=== PATIENT | female | born 1970 | race Caucasian/White ===

== ENCOUNTER 2016-06-18 11:10 | Emergency (ER) | payer MEDICAID ==
[~2016-06-18] VITALS: Ht 162.6 cm; Wt 88.9 kg
[~2016-06-18 11:10] MED LIST: ALBUTEROL SULF8.5 GM INH; AMOXICILLIN500 MG ORAL; AZITHROMYCIN250 MG ORAL; BACTRIM DS TAB1 EAC1 ORAL; CIPRO HC OTIC S10 M1 OT; IBUPROFEN600 MG ORAL; KEFLEX500 MG ORAL; NKM; NORCO 5-325 TA1 EACH ORAL; NORCO1 EA ORAL
[2016-06-18 11:17] VITALS: BP 133/83
[2016-06-18] MEDS ORDERED: ZITHROMAX250 MG ORAL (11:35)
[2016-06-18] MEDS ORDERED: ACETAMINOPHEN-1 EAC1 ORAL (11:35)
[2016-06-18] MEDS ORDERED: VENTOLIN HFA18 GM INH (11:35)
[2016-06-18] MEDS ORDERED: FLONASE ALLERG9.9 ML NS (11:35)
[2016-06-18 11:41] VITALS: BP 133/83
--- NOTE | 2016-06-18 11:41 | Emergency Room Report ---
History of Present Illness General Chief Complaint: Upper Respiratory Illness Source: Patient, Medical Record Present Illness HPI 45YOF presents with 5 days of dry cough, nasal congestion, sore throat, and bilateral ear pain (only at night). + smoker. + asthma. Doesnt have inhaler/ albuterol. Denies chest pain, SOB, abd pain, headache, myalgias. +sick son at home. Allergies: Coded Allergies: PROCHLORPERAZINE EDISYLATE (Verified Allergy, Mild, Hives, 08/20/12) PROCHLORPERAZINE MALEATE (Verified Allergy, Mild, Hives, 08/20/12) SULFADIAZINE (Verified Adverse Reaction, Intermediate, 10/13/13) Patient History Past Medical History: asthma Past Surgical History: none Pertinent Family History: none Social History: Reports: smoking Last Menstrual Period: 03/04/16 Now: No Immunizations: UTD Reviewed Nursing Documentation: PMH: Agreed, PSxH: Agreed Nursing Documentation-PMH Past Medical History: No History, Except For Hx Asthma: Yes Review of Systems All Other Systems: negative except mentioned in HPI Physical Exam Vital Signs Date Time Temp Pulse Resp B/P Pulse Ox O2 Delivery O2 Flow Rate FiO2 06/18/16 11:13 98.4 103 16 133/83 98 Room Air Sp02 EP Interpretation: reviewed, abnormal General Appearance: normal inspection, well appearing, no apparent distress, alert, GCS 15, non-toxic Head: normocephalic, atraumatic Eyes: bilateral eye EOMI, bilateral eye PERRL ENT: normal ENT inspection, hearing grossly normal, normal pharynx, no angioedema, normal voice, TMs + canals normal, uvula midline Neck: normal inspection, full range of motion, supple, no bony tend Respiratory: normal inspection, lungs clear, normal breath sounds, no rhonchi, no respiratory distress, no retraction, no accessory muscle use, no wheezing Cardiovascular #1: regular rate, rhythm, no edema Gastrointestinal: normal inspection, normal bowel sounds, non tender, soft, no guarding, no hernia Genitourinary: no CVA tenderness Musculoskeletal: normal inspection, back normal, normal range of motion, Yunier' s Sign negative Neurologic: normal inspection, alert, oriented x3, responsive, 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 VSS. Afebrile No obvious source of bacterial infection in oropharynx, ears, lungs, skin, abdomen on exam Well appearing Low suspicion for PNA, other acute bacterial process requiring additional evaluation, admissionAdvised supportive treatment PMD followup DC home Understands to return for worsening symptoms - Use albuterol and T#3 as needed for cough - Follow up with your primary care doctor in 2-3 days Last Vital Signs Date Time Temp Pulse Resp B/P Pulse Ox O2 Delivery O2 Flow Rate FiO2 06/18/16 11:17 98.4 16 133/83 98 Room Air 06/18/16 11:17 103 Status: improved Disposition: HOME, SELF-CARE Condition: Improved Scripts Albuterol Sulfate (VENTOLIN HFA) 18 Gm Hfa.aer.ad 2 PUFFS INH EVERY 6 HOURS for For Cough, #18 GM 0 Refills Prov: HUMAIRA HANSON M.D. 06/18/16 Fluticasone Propionate (Flonase Allergy Relief) 9.9 Ml [place].susp 9.9 ML NS BID for 7 Days, #1 UNIT Prov: HUMAIRA HANSON M.D. 06/18/16 Acetaminophen With Codeine (T#3) (TYLENOL #3 TAB*) Y Tab 1 TAB ORAL QHS Y for For Cough for 7 Days, #20 TAB Prov: HUMAIRA HANSON M.D. 06/18/16 Azithromycin* (ZITHROMAX*) 250 Mg Tablet 250 MG ORAL DAILY, #6 TAB 0 Refills Take two tables once daily for 1 day, then one tablet once daily for 4 days. Prov: HUMAIRA HANSON M.D. 06/18/16 Referrals: [facility]/,REFERRING (PCP) Patient Instructions: Upper Respiratory Infection, Adult Additional Instructions: - Cough: During the day use ventolin/albuterol as needed; at night take Tylenol with codeine for cough - Use flonase nasal spray as prescribed along with your sudafed for sinus congestion - Take ALL of the azithromycin antibiotic Z-pack medications - Follow up with your doctor in 2-3 days HUMAIRA HANSON M.D. June 18, 2016 11:41
== END 2016-06-18 11:41 | disposition home or self-care (01) ==
LOC: EMR 11:29
DX: J06.9 Acute upper respiratory infection, unspecified (principal); J45.909 Unspecified asthma, uncomplicated; F17.200 Nicotine dependence, unspecified, uncomplicated; Z88.2 Allergy status to sulfonamides; Z88.8 Allergy status to other drugs, medicaments and biological substances
CPT/HCPCS: 99284

== ENCOUNTER 2016-10-07 14:31 | Emergency (ER) | payer MEDICAID ==
[~2016-10-07] VITALS: Ht 162.6 cm; Wt 81.6 kg
[~2016-10-07 14:31] MED LIST changes: +ACETAMINOPHEN-1 EAC1 ORAL; +FLONASE ALLERG9.9 ML NS; +VENTOLIN HFA18 GM INH; +ZITHROMAX250 MG ORAL
--- NOTE | 2016-10-07 15:45 | Emergency Room Report ---
History of Present Illness General Chief Complaint: Upper Respiratory Illness Source: Patient Present Illness HPI 45 YO Female Presents to the ED c/O cough, nasal congestion, rhinorrhea and exacerbation of her inhaler use x 2 days. Pt. also reports bilateral ear discomfort described as pressure, and frontal sinus pressure. denies d/c or changes to hearing. Pt has hx of asthma, denies fevers/chills. Onset was the day after her son started high school and had same symptoms. Pt. reports intermittent clear mucus production. denies neck pain or stiffness. denies abdominal pain or rashes. Pt is UTD with vaccinations. Denies CP, Palpitations, LOC, AMS, dizziness, Changes in Vision, Sensation, paresthesias, or a sudden severe headache. Allergies: Coded Allergies: PROCHLORPERAZINE EDISYLATE (Verified Allergy, Mild, Hives, 08/20/12) PROCHLORPERAZINE MALEATE (Verified Allergy, Mild, Hives, 08/20/12) SULFADIAZINE (Verified Adverse Reaction, Intermediate, 10/13/13) Patient History Past Medical History: see triage record Past Surgical History: none Pertinent Family History: none Last Menstrual Period: unknown Now: No Immunizations: UTD Reviewed Nursing Documentation: PMH: Agreed, PSxH: Agreed Nursing Documentation-PMH Hx Asthma: Yes Review of Systems All Other Systems: negative except mentioned in HPI Physical Exam Vital Signs Date Time Temp Pulse Resp B/P Pulse Ox O2 Delivery O2 Flow Rate FiO2 10/07/16 14:48 98.4 89 19 111/75 97 Room Air Sp02 EP Interpretation: reviewed, normal General Appearance: no apparent distress, alert, GCS 15, non-toxic Head: normocephalic, atraumatic Eyes: bilateral eye PERRL, bilateral eye normal inspection ENT: hearing grossly normal, normal pharynx, no angioedema, normal voice, TMs + canals normal, uvula midline, nasal congestion, other - frontal and maxillary sinus ttp, no purulent d/c noted from nares. Neck: full range of motion, no meningismus, no bony tend, supple/symm/no masses Respiratory: chest non-tender, lungs clear, no rhonchi, speaking full sentences , wheezing - scant wheezes bilaterally Cardiovascular #1: regular rate, rhythm Musculoskeletal: back normal, gait/station normal, normal range of motion Neurologic: alert, oriented x3, responsive, motor strength/tone normal, sensory intact, speech normal Psychiatric: judgement/insight normal, memory normal, mood/affect normal Skin: normal color, no rash, warm/dry, well hydrated Lymphatic: no adenopathy Medical Decision Making PA Attestation Dr. De Jesus is my supervising Physician whom patient management has been discussed with. Diagnostic Impression: Primary Impression: Upper respiratory infection Qualified Codes: J06.9 - Acute upper respiratory infection, unspecified; B97.89 - Other viral agents as the cause of diseases classified elsewhere Additional Impression: Bronchitis ER Course 45 YO Female Presents to the ED c/O cough, nasal congestion, rhinorrhea and exacerbation of her inhaler use x 2 days. Pt. also reports bilateral ear discomfort described as pressure, and frontal sinus pressure. denies d/c or changes to hearing. Pt has hx of asthma, denies fevers/chills. Onset was the day after her son started high school and had same symptoms. Pt. reports intermittent clear mucus production. denies neck pain or stiffness. denies abdominal pain or rashes. Pt is UTD with vaccinations. Denies CP, Palpitations, LOC, AMS, dizziness, Changes in Vision, Sensation, paresthesias, or a sudden severe headache. Ddx considered but are not limited to URI, pneumonia, PE, strep pharyngitis, meningitis. Vital signs: Pt. is afebrile, the remaining VS are WNL H&PE are most consistent with URI- no meningeal signs, oropharynx is not involved, no evidence of bacterial infection at this time. I do not suspect pneumonia at this time. ORDERS: none required at this time, the diagnosis is clinical ED INTERVENTIONS: None required at this time. --PT. EDUCATION: Discussed antibiotic resistance with inappropriate prescribing of antibiotics for viral illnesses. Discussed signs and symptoms to indicate viral illness versus bacterial illness. DISCHARGE: At this time pt. is stable for d/c to home. Will provide printed patient care instructions, and any necessary prescriptions. Care plan and follow up instructions have been discussed with the patient prior to discharge. Last Vital Signs Date Time Temp Pulse Resp B/P Pulse Ox O2 Delivery O2 Flow Rate FiO2 10/07/16 14:48 98.4 89 19 111/75 97 Room Air Disposition: HOME, SELF-CARE Condition: Stable Scripts Cetirizine Hcl/Pseudoephedrine (ZYRTEC-D TABLET) 1 Each Tab.er.12h 1 EACH ORAL Q12HR for 7 Days, #14 TAB Prov: Arianna Modi 10/07/16 Albuterol Sulfate* (ALBUTEROL SULFATE MDI*) 8.5 Gm Hfa.aer.ad 2 PUFF INH Q4H, #1 INH 0 Refills Prov: Arianna Modi 10/07/16 Codeine Phosphate/Guaifenesin (GUAIFEN-CODEINE 200-20 MG/10ML) 10 Ml Liquid 10 ML PO Q6HR, #118 ML Prov: Arianna Modi 10/07/16 Referrals: [facility],REFERR[facility] (PCP) Patient Instructions: Upper Respiratory Infection, Adult Additional Instructions: Take medications as directed. Follow up with a Primary Care Provider in 3-5 days, even if your symptoms have resolved. --Please review list of primary care clinics, if you do not already have a primary care provider Return sooner to ED if new symptoms occur, or current symptoms become worse. Do not drink alcohol, drive, or operate heavy machinery while taking Cough Syrup as this may cause drowsiness. - Please note that this Emergency Department Report was dictated using [employer] specialist technology software, occasionally this can lead to erroneous entry secondary to interpretation by the dictation equipment. Arianna Modi Oct 07, 2016 15:45
[2016-10-07] MEDS ORDERED: GUAIFEN-CODEINE10 ML PO (15:48)
[2016-10-07] MEDS ORDERED: ZYRTEC-D TABLE1 EACH ORAL (15:48)
[2016-10-07] MEDS ORDERED: ALBUTEROL SULF8.5 GM INH (15:48)
[2016-10-07 16:23] VITALS: BP 111/75
[2016-10-07 16:24] VITALS: BP 111/75
== END 2016-10-07 16:25 | disposition home or self-care (01) ==
LOC: EMR 15:15
DX: J06.9 Acute upper respiratory infection, unspecified (principal); J20.9 Acute bronchitis, unspecified; B97.89 Other viral agents as the cause of diseases classified elsewhere; Z88.2 Allergy status to sulfonamides; Z88.8 Allergy status to other drugs, medicaments and biological substances
CPT/HCPCS: 99284

== ENCOUNTER 2016-11-01 15:46 | Emergency (ER) | payer MEDICAID ==
[~2016-11-01] VITALS: Ht 162.6 cm; Wt 88.5 kg
[~2016-11-01 15:46] MED LIST changes: +GUAIFEN-CODEINE10 ML PO; +ZYRTEC-D TABLE1 EACH ORAL
[2016-11-01 16:05] VITALS: BP 129/83
[2016-11-01] MEDS ORDERED: ROBAXIN-750750 MG PO (16:09)
[2016-11-01] MEDS ORDERED: NAPROSYN500 M1 ORAL (16:09)
--- NOTE | 2016-11-01 16:55 | Emergency Room Report ---
History of Present Illness General Chief Complaint: Neck Pain Source: Patient Present Illness HPI The patient is a 45-year-old female presenting with left neck pain for one week. She denies any known injury but states she may be sleeping incorrectly. There is a 7/10 dull ache to the L neck and L shoulder. Worse with arm movement. She has been using Motrin at home which has been helping. She denies any previous injury to these areas. She denies any other symptoms including F, numbness, IRVIN, dizziness, neck stiffness, rash, CP, SOB Allergies: Coded Allergies: PROCHLORPERAZINE EDISYLATE (Verified Allergy, Mild, Hives, 08/20/12) PROCHLORPERAZINE MALEATE (Verified Allergy, Mild, Hives, 08/20/12) SULFADIAZINE (Verified Adverse Reaction, Intermediate, 10/13/13) Patient History Past Medical History: see triage record Pertinent Family History: none Last Menstrual Period: feb Now: No Reviewed Nursing Documentation: PMH: Agreed, PSxH: Agreed Nursing Documentation-PMH Past Medical History: No History, Except For Hx Asthma: Yes Review of Systems All Other Systems: negative except mentioned in HPI Physical Exam Vital Signs Date Time Temp Pulse Resp B/P (MAP) Pulse Ox O2 Delivery O2 Flow Rate FiO2 11/01/16 15:49 98.8 88 18 129/83 98 Room Air Sp02 EP Interpretation: reviewed, normal General Appearance: no apparent distress, alert, GCS 15, non-toxic Head: normocephalic, atraumatic Eyes: bilateral eye normal inspection, bilateral eye PERRL ENT: hearing grossly normal, normal pharynx, no angioedema, normal voice Neck: full range of motion, supple/symm/no masses, tender lateral - L Respiratory: chest non-tender, lungs clear, normal breath sounds, speaking full sentences Cardiovascular #1: regular rate, rhythm, no edema Musculoskeletal: back normal, gait/station normal, normal range of motion, tender - TTP over the L trapezius Neurologic: alert, oriented x3, responsive, motor strength/tone normal, sensory intact, speech normal Psychiatric: judgement/insight normal, memory normal, mood/affect normal, no suicidal/homicidal ideation Skin: normal color, no rash, warm/dry, well hydrated Procedures Splinting Splinting : Consent: Verbal Location: L arm Pre-Made Type: sling Pre-Proc Neuro Vasc Exam: normal Post-Proc Neuro Vasc Exam: normal Patient Tolerated: Well Complications: None Medical Decision Making PA Attestation Dr. Ricks is my supervising physician. Patient management was discussed with my supervising physician Diagnostic Impression: Primary Impression: Muscle strain ER Course The patient is a 45-year-old female presenting with left neck pain for one week. Differential diagnoses considered but not limited to: Cervical strain, disc herniation, fracture, among others PE: NAD TTP over the L cervical paraspinal muscles and trapezius. No midline tenderness. Full AROM of neck and shoulder. Sling is placed The patient is AR'ed home with prescription for robaxin and naproxen. ER precautions given Last Vital Signs Date Time Temp Pulse Resp B/P (MAP) Pulse Ox O2 Delivery O2 Flow Rate FiO2 11/01/16 16:22 98.8 80 18 129/83 98 Room Air 75 Status: improved Disposition: HOME, SELF-CARE Condition: Improved Scripts Methocarbamol* (ROBAXIN-750*) 750 Mg Tablet 750 MG PO TID, #21 TAB 0 Refills Prov: FUAD WELLER P.A. 11/01/16 Naproxen* (NAPROSYN*) 500 Mg Tablet 500 MG ORAL TWICE A DAY, #14 TAB Prov: FUAD WELLER P.A. 11/01/16 Referrals: [facility] (PCP) Patient Instructions: Heat Therapy, Muscle Strain Additional Instructions: I discussed my findings with the patient. All questions and concerns have been answered. Treatment and medication compliance have been addressed. I advised the patient that they need to follow up with PMD in 3-5 days. Return to ED if symptoms worsen, new symptoms arise, or if needed for any reason. Patient verbalized understanding of discharge instructions. FUAD WELLER Nov 01, 2016 16:55
== END 2016-11-01 16:15 | disposition home or self-care (01) ==
LOC: EMR 16:08
DX: S16.1XXA Strain of muscle, fascia and tendon at neck level, initial encounter (principal); X58.XXXA Exposure to other specified factors, initial encounter; Y92.9 Unspecified place or not applicable; J45.909 Unspecified asthma, uncomplicated; Z88.2 Allergy status to sulfonamides; Z88.8 Allergy status to other drugs, medicaments and biological substances
CPT/HCPCS: 99284

== ENCOUNTER 2017-10-15 08:41 | Emergency (ER) | payer MEDICAID ==
[~2017-10-15] VITALS: Ht 162.6 cm; Wt 98.9 kg
[~2017-10-15 08:41] MED LIST changes: +NAPROSYN500 M1 ORAL; +ROBAXIN-750750 MG PO
[2017-10-15 09:40] VITALS: BP 127/87
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
[2017-10-15] MEDS ORDERED: TRAMADOL HCL50 MG ORAL (10:04)
[2017-10-15] MEDS ORDERED: ROBAXIN500 MG PO (10:04)
[2017-10-15] MEDS ORDERED: IBUPROFEN600 MG ORAL (10:04)
[2017-10-15 10:18] VITALS: BP 127/87
== END 2017-10-15 10:28 | disposition home or self-care (01) ==
LOC: EMR 09:40
DX: S13.4XXA Sprain of ligaments of cervical spine, initial encounter (principal); V43.52XA Car driver injured in collision with other type car in traffic accident, initial encounter; Y92.410 Unspecified street and highway as the place of occurrence of the external cause
CPT/HCPCS: 99283

== ENCOUNTER 2018-02-28 09:45 | Emergency (ER) | payer MEDICAID ==
[~2018-02-28] VITALS: Ht 162.6 cm; Wt 99.8 kg
[~2018-02-28 09:45] MED LIST changes: +ROBAXIN500 MG PO; +TRAMADOL HCL50 MG ORAL
[2018-02-28 09:55] VITALS: BP 118/82
[2018-02-28] MEDS ORDERED: IBUPROFEN600 MG ORAL (10:56)
--- NOTE | 2018-02-28 11:03 | Emergency Room Report ---
History of Present Illness General Chief Complaint: Flu Like Symptoms Source: Patient, Medical Record Present Illness HPI Patient presents with son With reports of body ache Sore throat Previously had some vomiting and diarrhea which has resolved Patient reports that her symptoms started on and her son started on Saturday Denies any fevers at this time denies any posterior neck pain denies any rash denies any dysuria or frequency feels that she has some pressure behind the right ear Allergies: Coded Allergies: PROCHLORPERAZINE EDISYLATE (Verified Allergy, Mild, Hives, 08/20/12) PROCHLORPERAZINE MALEATE (Verified Allergy, Mild, Hives, 08/20/12) SULFADIAZINE (Verified Adverse Reaction, Intermediate, 10/13/13) Patient History Past Medical History: see triage record Pertinent Family History: none Last Menstrual Period: 2 yrs ago Reviewed Nursing Documentation: PMH: Agreed; PSxH: Agreed Nursing Documentation-PMH Past Medical History: No History, Except For Hx Asthma: Yes Review of Systems All Other Systems: negative except mentioned in HPI Physical Exam Vital Signs Date Time Temp Pulse Resp B/P (MAP) Pulse Ox O2 Delivery O2 Flow Rate FiO2 02/28/18 09:50 98.2 92 18 118/82 95 Room Air Sp02 EP Interpretation: reviewed, normal General Appearance: well appearing, no apparent distress Head: normocephalic, atraumatic Eyes: bilateral eye PERRL, bilateral eye EOMI ENT: hearing grossly normal, TMs + canals normal, pharyngeal erythema - Mild erythema Neck: supple, no meningismus Respiratory: lungs clear, normal breath sounds, no respiratory distress, no retraction Cardiovascular #1: normal peripheral pulses, regular rate, rhythm, no JVD, no murmur Gastrointestinal: normal bowel sounds, non tender, soft Musculoskeletal: normal inspection Neurologic: oriented x3, 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, 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, motor strength/ tone normal, sensory intact Psychiatric: mood/affect normal Skin: normal color, no rash, warm/dry, palpation normal Lymphatic: normal inspection, no adenopathy Medical Decision Making Diagnostic Impression: Primary Impression: Influenza-like symptoms ER Course Patient has a fairly benign medical evaluation appears well Hemodynamically stable at this time it appears that her symptoms are starting to improve Patient will have some pain medicine for some of the myalgia And is stable for initial conservative outpatient trial Last Vital Signs Date Time Temp Pulse Resp B/P (MAP) Pulse Ox O2 Delivery O2 Flow Rate FiO2 02/28/18 09:55 92 18 Room Air 02/28/18 09:55 98.2 118/82 95 Status: unchanged Disposition: HOME, SELF-CARE Condition: Stable Scripts Ibuprofen* (MOTRIN*) 600 Mg Tablet 600 MG ORAL Q8H PRN for For Pain, #20 TAB 0 Refills Prov: Leeann Vance DO 02/28/18 Patient Instructions: Influenza, Adult, [id number] Additional Instructions: Patient is provided with the discharge instructions notified to follow up with primary doctor in the next 2-3 days otherwise return to the er with any worsening symptoms. Please note that this report is being documented using [employer] technology. This can lead to erroneous entry secondary to incorrect interpretation by the dictating instrument. Leeann Vance DO Feb 28, 2018 11:03
[2018-02-28 11:06] VITALS: BP 118/82
== END 2018-02-28 11:08 | disposition home or self-care (01) ==
LOC: EMR 10:45
DX: J11.1 Influenza due to unidentified influenza virus with other respiratory manifestations (principal); J45.909 Unspecified asthma, uncomplicated; Z88.2 Allergy status to sulfonamides; Z88.8 Allergy status to other drugs, medicaments and biological substances
CPT/HCPCS: 99282

== ENCOUNTER 2019-01-01 17:06 | Emergency (ER) | payer MEDICAID ==
[~2019-01-01] VITALS: Ht 162.6 cm; Wt 99.8 kg
[2019-01-01] MEDS ORDERED: NKM (17:17)
[2019-01-01 17:18] VITALS: BP 138/83
[2019-01-01] MEDS ORDERED: LIDODERM700 M1 TOPIC (17:39)
[2019-01-01] MEDS ORDERED: ROBAXIN-750750 MG PO (17:39)
[2019-01-01] MEDS ORDERED: IBUPROFEN600 MG ORAL (17:39)
[2019-01-01 17:52] VITALS: BP 132/82
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
== END 2019-01-01 17:50 | disposition home or self-care (01) ==
LOC: EMR 17:48
DX: M62.838 Other muscle spasm (principal); T14.8XXA Other injury of unspecified body region, initial encounter; V43.52XA Car driver injured in collision with other type car in traffic accident, initial encounter; Y92.411 Interstate highway as the place of occurrence of the external cause; J45.909 Unspecified asthma, uncomplicated; Z88.2 Allergy status to sulfonamides; Z88.8 Allergy status to other drugs, medicaments and biological substances
CPT/HCPCS: 99282

== ENCOUNTER 2019-06-15 06:41 | Emergency (ER) | payer MEDICAID ==
[~2019-06-15] VITALS: Ht 162.6 cm; Wt 106.6 kg
[~2019-06-15 06:41] MED LIST changes: +LIDODERM700 M1 TOPIC
[2019-06-15 06:53] VITALS: BP 134/84
--- NOTE | 2019-06-15 06:53 | NUR ---
ED Nurse Note: Pt walked into ED from home for c/o bilat earache onset three days ago. Pt also reports sore throat with mild cough. Pt is aaox4, ambulatory with steady gait. No acute distress, breathing is normal and unlabored. Will cont. to monitor.
--- NOTE | 2019-06-15 06:56 | Emergency Room Report ---
History of Present Illness General Chief Complaint: Earache Source: Patient Present Illness HPI 48-year-old female presents with cough, congestion, sore throat, bilateral earache x4 days no aggravating relieving factors severity is mild, constant patient denies any shortness of breath chest pain patient presents for evaluation Allergies: Coded Allergies: PROCHLORPERAZINE EDISYLATE (Verified Allergy, Mild, Hives, 08/20/12) PROCHLORPERAZINE MALEATE (Verified Allergy, Mild, Hives, 08/20/12) SULFADIAZINE (Verified Adverse Reaction, Intermediate, 10/13/13) COVID-19 Screening Contact w/high risk pt: No Recent Travel to affected area: No Experienced COVID-19 symptoms?: No Patient History Past Medical History: see triage record Social History: Reports: smoking Now: No Reviewed Nursing Documentation: PMH: Agreed; PSxH: Agreed Nursing Documentation-PMH Past Medical History: No Stated History Hx Asthma: Yes Review of Systems All Other Systems: negative except mentioned in HPI Physical Exam Vital Signs Date Time Temp Pulse Resp B/P (MAP) Pulse Ox O2 Delivery O2 Flow Rate FiO2 06/15/19 06:44 98.2 106 16 134/84 (101) 96 Room Air General Appearance: well appearing, no apparent distress Head: normocephalic, atraumatic ENT: hearing grossly normal, normal voice Neck: full range of motion, supple Respiratory: no respiratory distress, speaking full sentences Neurologic: alert, normal gait Psychiatric: mood/affect normal Skin: no rash Medical Decision Making Diagnostic Impression: Primary Impression: Upper respiratory infection Qualified Codes: J06.9 - Acute upper respiratory infection, unspecified ER Course 48-year-old female presents with consolation of symptoms concerning for possible viral syndrome differential diagnosis includes upper respiratory infection, COVID, pharyngitis Counseled patient disposition home with return precautions by social isolation x14 days strict return precautions were discussed in terms of dyspnea or respiratory distress to return to the ED Last Vital Signs Date Time Temp Pulse Resp B/P (MAP) Pulse Ox O2 Delivery O2 Flow Rate FiO2 06/15/19 06:44 98.2 106 16 134/84 (101) 96 Room Air Disposition: HOME, SELF-CARE Condition: Stable Scripts Acetaminophen (Tylenol) 325 Mg Tablet 650 MG ORAL Q6H PRN for Prn Pain/Headache/Temp > 101, #30 TAB 0 Refills Prov: Michael Mendoza MD 06/15/19 Referrals: [facility],REFERR[facility] (PCP) Patient Instructions: Upper Respiratory Infection, Adult, [id number] Additional Instructions: The patient was provided with discharge instructions, notified to follow-up with a primary care doctor and or specialist in the next 24-48 hours, and to return to the ED if they have worsening of their symptoms. Please note that this report is being documented using [employer] technology. This can lead to erroneous entry secondary to incorrect interpretation by the dictating instrument. PLEASE RETURN TO ED IF YOU HAVE WORSENING SYMPTOMS, SHORTNESS OF BREATH, CHEST PAIN. PLEASE SOCIALLY ISOLATE FOR 14 DAYS Michael Mendoza MD Jun 15, 2019 06:56
[2019-06-15] MEDS ORDERED: TYLENOL325 MG ORAL (06:59)
[2019-06-15 07:00] VITALS: BP 130/87
[2019-06-15] MEDS ORDERED: Acetaminophen 500mg (ES) tab ORAL ONE (07:00)
--- NOTE | 2019-06-15 07:00 | NUR ---
ER DISCHARGE NOTE: Patient is cleared to be discharged per ERMD, pt is aox4, on room air, with stable vital signs. pt was given dc and prescription instructions, pt was able to verbalize understanding, pt id removed. pt is able to ambulate with steady gait. pt took all belongings.
[2019-06-15] MEDS ORDERED: GUAIFENESI100 MG/5 M ORAL (07:08)
== END 2019-06-15 07:00 | disposition home or self-care (01) ==
LOC: EMR 06:55
DX: J06.9 Acute upper respiratory infection, unspecified (principal); Z88.2 Allergy status to sulfonamides; Z88.8 Allergy status to other drugs, medicaments and biological substances; F17.200 Nicotine dependence, unspecified, uncomplicated
CPT/HCPCS: 99282

== ENCOUNTER 2020-01-10 17:38 | Emergency (ER) | payer MEDICAID ==
[~2020-01-10] VITALS: Ht 162.6 cm; Wt 99.8 kg
[~2020-01-10 17:38] MED LIST changes: +GUAIFENESI100 MG/5 M ORAL; +TYLENOL325 MG ORAL
[2020-01-10 17:45] VITALS: BP 132/85
--- NOTE | 2020-01-10 17:45 | NUR ---
ED Nurse Note: Pt walked in to ED from home c/o non radiating left side chest pain onset this AM. Pt stated it could be a heartburn, took pepto bismol but pain is still consistent. Pt also c/o light headedness and being fidgety. AAOx4, verbally responsive. No SOB, on room air. Pt placed on elect equip maint eng. ERPA at bedside.
--- NOTE | 2020-01-10 18:00 | NUR ---
ED Nurse Note: IV line established. Blood sent to lab.
--- NOTE | 2020-01-10 18:08 | NUR ---
ED Nurse Note: Xray at bedside.
--- NOTE | 2020-01-10 18:22 | Diagnostic Imaging Report ---
EXAM: XR Chest, 1 View CLINICAL HISTORY: PAIN TECHNIQUE: Frontal view of the chest. COMPARISON: No relevant prior studies available. FINDINGS: Lungs: Possible right lateral midlung 0.8 cm nodular focus. Otherwise no acute cardiopulmonary disease. Pleural space: Unremarkable. No pneumothorax. Heart: Unremarkable. No cardiomegaly. Mediastinum: Unremarkable. Bones/joints: No acute abnormality IMPRESSION: 1. Possible right lateral midlung 0.8 cm nodular focus. 2. Otherwise no acute cardiopulmonary disease. 3. Recommend unenhanced CT chest to further characterize possible right midlung nodular focus.
[2020-01-10 18:25] LABS: BASOPHILS % (AUTO) 0.9 % (0.0-2.0); EOSINOPHILS % (AUTO) 1.1 % (0.0-3.0); HEMATOCRIT 41.9 % (37.0-47.0); HEMOGLOBIN 14.3 G/DL (12.0-16.0); LYMPHOCYTES % (AUTO) 31.3 % (20.0-45.0); MEAN CORPUSCULAR VOLUME 97 FL (80-99); MONOCYTES % (AUTO) 6.7 % (1.0-10.0); PLATELET COUNT 387 K/UL (150-450); RED BLOOD COUNT 4.33 M/UL (4.20-5.40); RED CELL DISTRIBUTION WIDTH 11.9 % (11.6-14.8); WHITE BLOOD COUNT 13.5 K/UL (4.8-10.8)
[2020-01-10 18:37] LABS: ANION GAP 8 mmol/L (5-15); BLOOD UREA NITROGEN 8 mg/dL (7-18); CARBON DIOXIDE 27 MMOL/L (21-32); CHLORIDE 106 MMOL/L (98-107); CREATININE 0.7 MG/DL (0.55-1.30); POTASSIUM 3.6 MMOL/L (3.5-5.1); SODIUM 141 MMOL/L (136-145)
[2020-01-10 18:48] LABS: ALANINE AMINOTRANSFERASE 22 U/L (12-78); ALBUMIN 3.9 G/DL (3.4-5.0); ALBUMIN/GLOBULIN RATIO 1.1 (1.0-2.7); ALKALINE PHOSPHATASE 121 U/L (46-116); ASPARTATE AMINO TRANSFERASE 18 U/L (15-37); BILIRUBIN,TOTAL 0.3 MG/DL (0.2-1.0)
--- NOTE | 2020-01-10 19:04 | NUR ---
HAND-OFF: Report given to Kael DELONG.
--- NOTE | 2020-01-10 19:12 | Emergency Room Report ---
History of Present Illness General Chief Complaint: Chest Pain Source: Patient Present Illness HPI 49-year-old female with history of asthma albuterol inhaler here complaining of sudden onset of chest pain that started this morning upon waking up. Reports that at first she believed that it was due to her acid reflux and took some Tums however did not help her. Denies any pain radiation reports that the pain is central and stabbing. Denies any pleuritic chest pain, leg edema and calf tenderness. Denies abdominal pain, nausea vomiting, headache and dizziness. Denies any history of hypertension. Reports that lately she has been ill with more stress and she has to take care of her mother was suffering from dementia. Reports that she has been a tobacco smoker for many years and smoking about 5 to 6 cigarettes/day. Denies all other drug use and alcohol intake. Denies generalized or unilateral weakness Allergies: Coded Allergies: PROCHLORPERAZINE EDISYLATE (Verified Allergy, Mild, Hives, 08/20/12) PROCHLORPERAZINE MALEATE (Verified Allergy, Mild, Hives, 08/20/12) SULFADIAZINE (Verified Adverse Reaction, Intermediate, 10/13/13) COVID-19 Screening Contact w/high risk pt: No Recent Travel to affected area: No Experienced COVID-19 symptoms?: No COVID-19 Testing performed RESEARCH STATISTICIAN: No Patient History Past Medical History: see triage record Past Surgical History: none Pertinent Family History: none Social History: Reports: smoking Now: No Immunizations: UTD Reviewed Nursing Documentation: PMH: Agreed; PSxH: Agreed Nursing Documentation-PMH Past Medical History: No History, Except For Hx Asthma: Yes Review of Systems All Other Systems: negative except mentioned in HPI Physical Exam Vital Signs Date Time Temp Pulse Resp B/P (MAP) Pulse Ox O2 Delivery O2 Flow Rate FiO2 01/10/20 17:42 98.1 118 20 132/85 (101) 94 Room Air Sp02 EP Interpretation: reviewed, abnormal - Slightly tachycardic General Appearance: alert, non-toxic, mild distress Head: normocephalic, atraumatic Eyes: bilateral eye normal inspection, bilateral eye PERRL ENT: hearing grossly normal, normal pharynx, no angioedema, normal voice Neck: full range of motion, supple/symm/no masses Respiratory: chest non-tender, lungs clear, normal breath sounds, speaking full sentences Cardiovascular #1: regular rate, rhythm, no edema Cardiovascular #2: 2+ carotid (R), 2+ carotid (L), 2+ radial (R), 2+ radial (L), 2+ dorsalis pedis (R), 2+ dorsalis pedis (L) Gastrointestinal: normal bowel sounds, non tender, soft, non-distended, no guarding, no rebound Rectal: deferred Genitourinary: no CVA tenderness Musculoskeletal: back normal, no calf tenderness Neurologic: alert, motor strength/tone normal, oriented x3, sensory intact, responsive, speech normal Psychiatric: judgement/insight normal, memory normal, mood/affect normal, no suicidal/homicidal ideation Skin: no rash Lymphatic: no adenopathy Medical Decision Making PA Attestation All my diagnosis and treatment plans were reviewed ad discussed with my supervising physician Dr. Johnston Diagnostic Impression: Primary Impression: Chest pain Additional Impressions: Pulmonary nodule GERD (gastroesophageal reflux disease) ER Course 49-year-old female with history of asthma albuterol inhaler here complaining of sudden onset of chest pain that started this morning upon waking up. Reports that at first she believed that it was due to her acid reflux and took some Tums however did not help her. Denies any pain radiation reports that the pain is central and stabbing. Denies any pleuritic chest pain, leg edema and calf tend erness. Denies abdominal pain, nausea vomiting, headache and dizziness. Denies any history of hypertension. Reports that lately she has been ill with more stress and she has to take care of her mother was suffering from dementia. Reports that she has been a tobacco smoker for many years and smoking about 5 to 6 cigarettes/day. Denies all other drug use and alcohol intake. Denies generalized or unilateral weakness Ddx considered but are not limited to: NH, Angina, COPD, GERD, PE Vital signs: are WNL, pt. is afebrile H&PE are most consistent with unspecified chest pain, pulmonary nodule, GERD ORDERS: Chest pain order set, Pepcid ED INTERVENTIONS: NS bolus DISCHARGE: At this time pt. is stable for d/c to home. Will provide printed pa tient care instructions, and any necessary prescriptions. Care plan and follow up instructions have been discussed with the patient prior to discharge. Advised patient to follow primary care provider, also referral to manage as needed for biopsy of the pulmonary nodule due to patient smoking status. Also further evaluation by animal husbandman may be needed upon request of primary care provider. Avoid eating spicy greasy food. If worsening symptoms return to the emergency room EKG Diagnostic Results Rate: tachycardiac Rhythm: other - Tachycardia ST Segments: no acute changes Other Impression No acute ST changes ASA given to the pt in ED: No Chest X-Ray Diagnostic Results Chest X-Ray Diagnostic Results : Chest X-Ray Ordered: Yes # of Views/Limited/Complete: 1 View Indication: Chest Pain EP Interpretation: Yes BELLA Xray: Interpretation reviewed, by supervising MD, and agrees with findi ngs. Interpretation: no consolidation, no effusion, no pneumothorax, no acute cardiopulmonary disease Impression: No acute disease Electronically Signed by: Annita Gutiérrez PA-C Last Vital Signs Date Time Temp Pulse Resp B/P (MAP) Pulse Ox O2 Delivery O2 Flow Rate FiO2 01/10/20 17:45 98.1 118 20 132/85 94 Room Air Disposition: HOME, SELF-CARE Condition: Stable Referrals: NON PHYSICIAN (PCP) Patient Instructions: Food Choices for Gastroesophageal Reflux Disease, Adult, Nonspecific Chest Pain, Pulmonary Nodule, [id number] Additional Instructions: Advised patient to follow primary care provider, also referral to manage as needed for biopsy of the pulmonary nodule due to patient smoking status. Also further evaluation by animal husbandman may be needed upon request of primary care provider. Avoid eating spicy greasy food. If worsening symptoms return to the emergency room Annita Francis Jan 10, 2020 19:12
[2020-01-10 19:17] LABS: APPEARANCE,URINE SLIGHTLY CLOUDY; BILIRUBIN, URINE NEGATIVE (NEGATIVE); COLOR,URINE PALE YELLOW; GLUCOSE, URINE (UA) NEGATIVE (NEGATIVE); KETONES,URINE NEGATIVE (NEGATIVE); LEUKOCYTE ESTERASE ,URINE NEGATIVE (NEGATIVE); NITRITE,URINE NEGATIVE (NEGATIVE); PH,URINE 8 (4.5-8.0); PROTEIN,URINE NEGATIVE (NEGATIVE); UROBILINOGEN,URINE NORMAL MG/DL (0.0-1.0)
[2020-01-10] MEDS ORDERED: FAMOTIDINE20 MG ORAL (19:38)
[2020-01-10 19:45] VITALS: BP 129/88
--- NOTE | 2020-01-10 19:45 | NUR ---
ER DISCHARGE NOTE: Patient is cleared to be discharged per ERMD, pt is aox4, on room air, with stable vital signs. pt was given dc instructions, pt was able to verbalize understanding, pt id band and iv site removed without complications. pt is able to ambulate with steady gait. pt took all belongings.
== END 2020-01-10 19:45 | disposition home or self-care (01) ==
LOC: EMR 17:51
DX: R07.9 Chest pain, unspecified (principal); R91.1 Solitary pulmonary nodule; K21.9 Gastro-esophageal reflux disease without esophagitis; F17.210 Nicotine dependence, cigarettes, uncomplicated; Z88.2 Allergy status to sulfonamides; Z88.8 Allergy status to other drugs, medicaments and biological substances; R00.0 Tachycardia, unspecified
CPT/HCPCS: 36415; 71045; 80053; 80307; 81003; 81025; 83880; 84484; 84703; 85025; 85379; 85610; 85730; 93005; 96361; 96374; J7030; S0028; Z7502; 99284